=== PATIENT | male | born 1990 | race Caucasian/White ===

== ENCOUNTER 2023-12-26 07:25 | Emergency (ER) | payer MEDICAID, OTHER ==
[~2023-12-26] VITALS: Ht 188 cm; Wt 98.6 kg
[2023-12-26] MEDS: loratadine 10mg tablet PO SCH (08:04)
[2023-12-26 08:27] VITALS: BP 126/71; PULSE 98; RESP 16; TEMP 98; O2SAT 98
== END 2023-12-26 08:29 | disposition home or self-care (01) ==
LOC: ER 07:25
DX: T63.441A Toxic effect of venom of bees, accidental (unintentional), initial encounter (principal); Y92.89 Other specified places as the place of occurrence of the external cause
CPT/HCPCS: 99282